=== PATIENT | male | born 1970 | race Caucasian/White ===

== ENCOUNTER 2016-08-31 04:56 | Emergency (ER) | payer SELFPAY ==
[~2016-08-31] VITALS: Ht 175.3 cm; Wt 64.9 kg
[2016-08-31 06:47] LABS: BLOOD UREA NITROGEN 15 mg/dL (7-18)
[2016-08-31 06:50] LABS: ASPARTATE AMINO TRANSFERASE 18 U/L (15-37)
[2016-08-31 07:44] VITALS: BP 130/86
== END 2016-08-31 07:48 | disposition home or self-care (01) ==
LOC: ED 07:18
DX: G89.29 Other chronic pain (principal); R10.12 Left upper quadrant pain; R51 Headache; F17.210 Nicotine dependence, cigarettes, uncomplicated
CPT/HCPCS: 36415; 80053; 81001; 85025; 93005